=== PATIENT | female | born 1985 | race Caucasian/White ===

== ENCOUNTER 2023-08-12 17:37 | Inpatient (IN) | payer BC, SELFPAY ==
--- NOTE | ~2023-08-12 | CT_ITS ---
EXAMINATION: CT abdomen pelvis w con DATE: 08/12/2023 20:41 INDICATION: abdominal pain TECHNIQUE: Computed tomography (CT) of the abdomen and pelvis was performed with 100 mL Omnipaque-350 intravenous contrast. Automated exposure control and iterative reconstruction technique were employe d. The dose-length product was 1386.86 mGy-cm. COMPARISON: None. FINDINGS: Lower thorax: Dependent scar/atelectasis. Liver: 1.4 cm indeterminate density left liver lobe lesion. Subcentimeter right liver lobe lesion.. Biliary/Gallbladder: Gallbladder is normal. No bile duct dilation. Pancreas: No mass or duct dilation. Spleen: Normal. Adrenals:No mass. Kidneys: No suspicious mass, obstructing stone, or hydronephrosis. Subcentimeter left midpole hypoden sity, too small to characterize but most likely represents a cyst. GI tract: Mild distal esophageal and gastric wall edema No small or large bowel dilation. Dilated farzana endix with surrounding inflammatory change, no wall breakdown or abscess. Mesentery/Peritoneum: No ascites, mass, or free air. Retroperitoneum: No mass. Pelvis: Pelvic organs are within normal limits. IUD, in good position Soft Tissues: Soft tissues and body wall unremarkable. Bones: No acute osseous finding. IMPRESSION: Acute uncomplicated appendicitis. Mild esophagitis/gastritis. Indeterminate 1.4 cm left liver lobe lesion, recommend nonemergent outpatient MR the liver for furthe r characterization. Reviewed, dictated and finalized at location K. [employer] SOFTWARE DEVELOPER IMPRESSION: Acute uncomplicated appendicitis. Mild esophagitis/gastritis. Indeterminate 1.4 cm left liver lobe lesion, recommend nonemergent outpatient M R the liver for further characterization.
[2023-08-12 17:41] VITALS: BP 142/82; PULSE 138; RESP 18; TEMP 36.3; O2SAT 100
--- NOTE | 2023-08-12 18:03 | ED.ABDPAIN ---
HPI - Abdominal Pain General Chief Complaint: Abdominal Pain Stated Complaint: abd pain Time Seen by Provider: 08/12/23 17:54 History of Present Illness HPI narrative: Patient is the 38-year-old female with history of high cholesterol here with abdominal pain. She states that the abdominal pain began around 12 hours ago and woke her up in the middle the night. It was associated initially with a bout of diarrhea, nonbloody, liquid in nature. she has not had any bowel movement since that time and has not had any flatulence. She notes she has had about 4-5 episodes of vomit today which was nonbloody. Abdominal pain is located mid abdomen and right lower quadrant but seems to radiate throughout her entire abdomen. No prior abdominal surgeries. She has not had any p.o. intake today she has not taken anything at home for the pain today. No fever or chills at home. No cough or congestion. No prior cardiac history. She no longer has a menstrual cycle due to having an IUD in place. No vaginal discharge or bleeding. No urinary symptoms. Related Data Allergies Allergy/AdvReac Type Severity Reaction Status Date / Time Penicillins Allergy Unknown HIVES/SWELL Verified 08/12/23 18:05 ING Review of Systems Review of Systems: All systems reviewed & are unremarkable except as noted in HPI and below Exam Narrative: GENERAL: Well-appearing, well-nourished, and in no acute distress. HEAD: Normocephalic, atraumatic. EYES: PERRLA and EOMI. ENT: Nares clear. Mucous membranes moist. NECK: Supple. CHEST: Clear to auscultation. No respiratory distress. HEART: Tachycardic. Normal peripheral pulses. ABDOMEN: Soft, tenderness in the right lower quadrant with some guarding appreciated, no abdominal rigidity, no rebound appreciated. No CVA tenderness. EXTREMITIES: Normal range of motion. No edema. SKIN: Warm, dry, no rash. NEURO: No focal deficits. Alert and oriented x3. PSYCH: Normal mood and affect. Course Course Emergency Course: Chart review performed, patient is here with abdominal pain for 12 hours as well as vomiting. triage vitals show hypertension as well as tachycardia to 138. Afebrile. No prior visits in our system. Patient seen evaluated, appears to be pain, does have some guarding and tenderness in her right lower quadrant. Will do septic workup, IV fluids, pain medication, antiemetics, CT abdomen pelvis to evaluate for possible intra-abdominal pathology including but not limited to bowel obstruction, appendicitis, diverticulitis. Patient agreeable to plan. Additional pain medication provided to patient. Lab work reviewed, leukocytosis of 25.3. Hemoglobin 15.4, expect that some level of dehydration is contributed to hemoconcentration however do have concern for infectious process especially given clinical picture. Antibiotics for intra-abdominal coverage with ciprofloxacin and Flagyl ordered. Patient has allergy to penicillins. Electrolytes grossly normal, normal renal function. Mild elevation of total bilirubin at 2.3, mild elevation of ALT 48, LFTs otherwise within normal limits. negative. CRP mildly elevated at 1.4. UA has 4+ ketones, negative for UTI. COVID, influenza, RSV negative. Repeat vitals showed improving tachycardia from 138-93. Remains normotensive. Awaiting CT. CT images reviewed by myself, concerning appearance of right lower quadrant suspicion for acute pancreatitis, no obvious intraperitoneal free air or abscess appreciated. Spoke with Dr. Lopez who accepts the patient for admission. Keep NPO, continue antibiotics. Orders placed. Patient updated and all questions and concerns addressed. Vital Signs Vital signs: Vital Signs Temperature 97.3 F L 08/12/23 17:41 Pulse Rate 138 H 08/12/23 17:41 Respiratory Rate 18 08/12/23 17:41 Blood Pressure 142/82 H 08/12/23 17:41 Pulse Oximetry 100 08/12/23 17:41 Temperature 97.3 F L 08/12/23 17:41 Pulse
[2023-08-12] MEDS: ONDANSETRON INJ 4 MG/2 ML VIAL IV PUSH ×2 (18:25→21:31)
[2023-08-12] MEDS: MORPHINE SULFATE (*CRX) 4 MG/ML INJ IV PUSH ×2 (18:25→23:42)
[2023-08-12 18:31] LABS: Basophils Absolute Auto 0.1 K/mm3 (0.0-0.1); Basophils Percent Auto 0.2 % (0.2-1.2); Hematocrit 45.6 % (37.0-47.0); Hemoglobin 15.4 g/dL (12.0-15.0); Immature Granulocyte Absolute 0.11 K/mm3 (0.00-0.031); Immature Granulocyte Percent A 0.4 % (0-0.5); Lymphocytes Absolute Auto 1.42 K/mm3 (0.9-3.2); Lymphocytes Percent Auto 5.6 % (18.3-44.2); Mean Corpuscular HGB Conc 33.8 g/dl (32-36); Mean Corpuscular Hemoglobin 29.6 pg (26-34); Mean Corpuscular Volume 87.7 fl (80-100); Mean Platelet Volume 10.6 fl (7.4-10.4); Monocytes Percent Auto 3.9 % (2.6-8.5); Neutrophils Absolute Auto 22.7 K/mm3 (1.3-6.7); Neutrophils Percent Auto 89.9 % (45.5-73.1); Platelet Count Result 346 k/mm3 (150-375); Red Cell Distribution Width 12.8 % (11.5-14.5); White Blood Count 25.3 K/mm3 (4.5-10.0)
[2023-08-12 18:42] LABS: Lactic Acid Reflex 1.7 mmol/L (0.7-2.0)
[2023-08-12 18:43] LABS: Prothrombin Time 13.6 Seconds (11.1-14.7)
[2023-08-12 18:44] LABS: Alanine Aminotransferase 48 U/L (6-35); Albumin Level 4.8 g/dL (3.5-5.1); Alkaline Phosphatase 105 U/L (38-126); Anion Gap 10 mmol/L (8-16); Aspartate Amino Transferase 31 U/L (14-36); Bilirubin,Total 2.3 mg/dL (0.2-1.3); Blood Urea Nitrogen 9 mg/dL (7-17); Calcium 9.7 mg/dL (8.4-10.2); Carbon Dioxide 24 mmol/L (22-30); Chloride 105 mmol/L (98-107); Estimated CRCL calculation 118 ml/min; Estimated Glomerular Filt Rate > 60; Glucose 119 mg/dL (65-110); Lipase 174 U/L (23-300); Partial Thromboplastin Time 27.1 SECONDS (22.3-36.8); Sodium 139 mmol/L (137-145)
[2023-08-12 18:47] LABS: CRP 1.4 mg/dL (<1.0)
[2023-08-12 18:52] LABS: Large Platelets Present; Platelet Estimate Adequate (Adequate)
[2023-08-12 18:54] LABS: Burr Cells 1+ (NORMAL); Platelet Clumps Present; Poikilocytosis 1+ (NORMAL); Schistocytes None Seen (NORMAL); Tear Drop Cells 1+ (NORMAL)
[2023-08-12 19:10] LABS: Influenza A QL RT-PCR Negative (Negative); Influenza B QL RT-PCR Negative (Negative); RSV RNA, RT-PCR Negative (Negative); SARS-CoV-2 RNA PCR Negative (Negative)
[2023-08-12 19:15] LABS: SPREG INTERNAL CONTROL Positive; Serum Qual hCG Negative
[2023-08-12 19:17] LABS: Appearance Urine Cloudy (Clear); Bacteria Urine Rare /hpf; Bilirubin Urine Negative (Negative); Blood Urine Negative (Negative); Color Urine Dark Yellow (Yellow); Glucose Urine UA Negative (Negative); Ketones Urine 4+ mg/dL (Negative); Leukocyte Esterase Ur Trace LEU/UL (Negative); Need Manual Microscopic Reviewed; Nitrate Urine Negative (Negative); Protein Urine 1+ mg/dL (Negative); Specific Grav Ur 1.026 (1.001-1.035); Squamous Epithelial Cell Urine Moderate /hpf (Few); pH Urine 7.5 (5.0-9.0)
[2023-08-12] MEDS: metroNIDAZOLE 500 MG/ISO 100ML 500 MG/100 ML BAG 100 MG IVPB (19:18)
[2023-08-12] MEDS: HYDROmorphone HCL INJ (*CRX) 1 MG/ML SYR IV PUSH ×2 (19:18→21:21)
[2023-08-12 19:20] LABS: Add Urine Microscopic? YES
[2023-08-12 19:35] VITALS: BP 134/90; PULSE 93; RESP 15; O2SAT 100
[2023-08-12] MEDS: CIPROFLOXACIN 400 MG/D5W 200ML 200 ML 200 MG IVPB (20:17)
[2023-08-12 21:35] VITALS: BP 117/82; PULSE 91; RESP 14; O2SAT 96
[2023-08-12 21:36] VITALS: O2SAT 97
[2023-08-12 22:34] VITALS: BP 130/77; PULSE 99; RESP 16; TEMP 36.3; O2SAT 96; BMI 33.7
[2023-08-12 22:43] VITALS: BMI 33.7
--- NOTE | 2023-08-12 22:46 | ADMGEN ---
This patient, Vanessa Meyer, was admitted to 3 [facility] Surg Room 320-01. Patient/family oriented to hospital policies and general routines including ID bracelet, bed and alarms, visiting hours, pain management, procedures, bathroom and other care routines, personal items, smoking policy, room service/diet, and visiting hours. Information on how to activate the Rapid Response Team has been discussed. Patient/Family are encouraged to report perceived risks to care and to ask questions if they do not understand what they are told or what they should do.
[2023-08-12] MEDS: LACTATED RINGERS 1,000 ML 125 ML IV CONT (23:19)
[2023-08-12] MEDS: PROMETHAZINE HCL 25 MG/ML AMPUL 12.5 MG IV PUSH (23:43)
[2023-08-13] VITALS (13 sets, daily range): BP systolic 111–150; BP diastolic 58–95; PULSE 78–105; RESP 16–18; TEMP 36.2–37; O2SAT 93–100
[2023-08-13] MEDS: metroNIDAZOLE 500 MG/ISO 100ML 500 MG/100 ML BAG 100 MG IVPB ×3 (06:08→22:35)
[2023-08-13] MEDS: MORPHINE SULFATE (*CRX) 4 MG/ML INJ IV PUSH (06:12)
[2023-08-13] MEDS: PROMETHAZINE HCL 25 MG/ML AMPUL 12.5 MG IV PUSH ×3 (06:13→16:28)
[2023-08-13] MEDS: LACTATED RINGERS 1,000 ML 125 ML IV CONT (06:13)
[2023-08-13 06:55] LABS: Basophils Absolute Auto 0.1 K/mm3 (0.0-0.1); Basophils Percent Auto 0.3 % (0.2-1.2); Eosinophils Absolute Auto 0.1 K/mm3 (0-0.3); Eosinophils Percent Auto 0.4 % (0-4.4); Hematocrit 40.1 % (37.0-47.0); Hemoglobin 13.1 g/dL (12.0-15.0); Immature Granulocyte Absolute 0.11 K/mm3 (0.00-0.031); Immature Granulocyte Percent A 0.6 % (0-0.5); Lymphocytes Absolute Auto 3.76 K/mm3 (0.9-3.2); Lymphocytes Percent Auto 19.5 % (18.3-44.2); Mean Corpuscular HGB Conc 32.7 g/dl (32-36); Mean Corpuscular Hemoglobin 29.2 pg (26-34); Mean Corpuscular Volume 89.5 fl (80-100); Mean Platelet Volume 10.7 fl (7.4-10.4); Monocytes Percent Auto 5.3 % (2.6-8.5); Neutrophils Absolute Auto 14.3 K/mm3 (1.3-6.7); Neutrophils Percent Auto 73.9 % (45.5-73.1); Platelet Count Result 286 k/mm3 (150-375); Red Blood Count 4.48 M/mm3 (4.2-5.4); Red Cell Distribution Width 12.7 % (11.5-14.5); White Blood Count 19.3 K/mm3 (4.5-10.0)
[2023-08-13 07:04] LABS: Alanine Aminotransferase 32 U/L (6-35); Albumin Level 3.7 g/dL (3.5-5.1); Alkaline Phosphatase 69 U/L (38-126); Anion Gap 4 mmol/L (8-16); Aspartate Amino Transferase 19 U/L (14-36); Bilirubin,Total 2.3 mg/dL (0.2-1.3); Blood Urea Nitrogen 6 mg/dL (7-17); Carbon Dioxide 27 mmol/L (22-30); Chloride 106 mmol/L (98-107); Estimated CRCL calculation 122 ml/min; Estimated Glomerular Filt Rate > 60; Glucose 88 mg/dL (65-110); Potassium 3.8 mmol/L (3.4-5.0); Sodium 137 mmol/L (137-145)
[2023-08-13] MEDS: HYDROmorphone HCL INJ (*CRX) 1 MG/ML SYR IV PUSH ×4 (08:49→21:08)
[2023-08-13] MEDS: CIPROFLOXACIN 400 MG/D5W 200ML 200 ML 200 MG IVPB ×2 (08:49→21:09)
--- NOTE | 2023-08-13 09:44 | PM.IMHP ---
H&P: HPI History of Present Illness Date/Time: 08/13/23 09:44 Chief Complaint: Abdominal pain, vomiting Narrative: This is a 38-year-old woman with a history of hyperlipidemia, GERD, and anxiety, who presented to the ER last night with complaints of abdominal pain. She woke up yesterday morning around 6:00 a.m. with diarrhea. Shortly after, she developed generalized abdominal cramping. She reports associated chills, nausea, and vomiting. Due to her persistent pain, she came into the ER for evaluation. Workup showed a white blood cell count of 25,300. CT scan of the abdomen and pelvis showed acute uncomplicated appendicitis, no evidence of perforation or abscess, mild esophagitis/gastritis, indeterminate 1.4 cm left liver lobe lesion. She has a penicillin allergy and was started on IV ciprofloxacin and metronidazole. She had relief in her abdominal pain following the IV Dilaudid. She reports her abdominal pain is mostly across her lower abdomen now and is more localized in the right lower quadrant. No previous abdominal surgeries. Review of Systems Review of Systems: All systems reviewed & are unremarkable except as noted in HPI and below PMFSH Past Medical History Medical History Anxiety GERD (gastroesophageal reflux disease) Hyperlipidemia Surgical History Surgical History No pertinent past surgical history Family History Family History Mother Hyperlipidemia Heart disease Acute myocardial infarction Sibling Hyperlipidemia Social History Social History Smoking status: Current every day smoker Tobacco type: e-cigarettes/vaping Second hand tobacco smoke exposure: No Alcohol intake: current Drinks per week: 2 Substance use: current Substance use type: marijuana Other substance usage details: edibles Lack of Transportation: No Lack of Food: Never True Current Housing: I Have Housing Concerned About Future Housing: No Difficulty Paying Gas/Electric Bills: No Difficulty Paying for Meds: No Currently Unemployed: No Education: Bachelor's Degree Difficulty w/ Childcare or Family Care: No Spiritual care concerns: No Meds Home Medications and Allergies Home Medications Medication Instructions Recorded Confirmed Type alprazolam 0.25 mg tablet 0.25 mg PO BID PRN Anxiety 08/12/23 08/12/23 History atorvastatin 40 mg tablet 40 mg PO HS 08/12/23 08/12/23 History dextroamphetamine-amphetamine ER 20 mg PO DAILY 08/12/23 08/12/23 History 20 mg 24hr capsule,extend release pantoprazole 40 mg tablet,delayed 40 mg PO DAILY 08/12/23 08/12/23 History release semaglutide (weight loss) 2.4 2.4 mg subcut WEEKLY 08/12/23 08/12/23 History mg/0.75 mL subcutaneous pen injector (Juan) Allergies Allergy/AdvReac Type Severity Reaction Status Date / Time Penicillins Allergy Unknown HIVES/SWELL Verified 08/12/23 18:05 ING Vital Signs Vital Signs - 24 hr 08/12/23 17:41 08/12/23 19:35 08/12/23 21:36 Temperature 97.3 F L Pulse Rate 138 H 93 Respiratory Rate 18 15 Blood Pressure 142/82 H 134/90 Pulse Oximetry 100 100 97 Oxygen Delivery Nasal Cannula Oxygen Flow Rate 2 08/12/23 21:35 08/12/23 22:34 08/13/23 05:22 Temperature 97.4 F L 98.6 F Pulse Rate 91 99 85 Respiratory Rate 14 16 16 Blood Pressure 117/82 130/77 111/70 Pulse Oximetry 96 96 99 Oxygen Delivery Oxygen Flow Rate 08/13/23 08:00 Temperature Pulse Rate Respiratory Rate Blood Pressure Pulse Oximetry 95 Oxygen Delivery Oxygen Flow Rate Exam Const: General: comfortable and no acute distress Nutritional Appearance: overweight Orientation/consciousness: patient oriented x3 HENMT: Head: normocephalic and atraumatic Ears: hearing grossly
[2023-08-13] MEDS: PANTOPRAZOLE 40 MG TABLET PO (09:51)
[2023-08-13] MEDS: ALPRAZolam (*CRX) 0.25 MG TABLET PO (09:51)
--- NOTE | 2023-08-13 13:16 | WPDHPUPDATE1 ---
History and Physical Update Update Date/Time: 08/13/23 13:16 History and Physical has been reviewed, including an updated exam of the patient. There are NO changes in the patient's condition. Risks, benefits, and alternatives have been discussed and questions answered. Patient agrees to proceed with procedure.
[2023-08-13] MEDS: LACTATED RINGERS 1,000 ML 30 ML IV CONT ×2 (14:20→16:18)
--- NOTE | 2023-08-13 14:37 | WPDANESEPPF ---
Anes - Initial Pre Proc Eval Procedure: Operation Date: 08/13/23 15:30 Proposed Procedures p Laparoscopic Appendectomy, Possible Open - Joaquim Lopez DO Date/Time: 08/13/23 14:37 Surgeon: Joaquim Lopez DO Pre Op Diagnosis: Acute Appendicits Patient Data Age: 38 Gender: F Height: 1.78 m Weight: 106.9 kg Last Vital Signs Temp 36.6 C 08/13/23 14:31 Pulse 83 08/13/23 14:31 Resp 16 08/13/23 14:31 BP 115/65 08/13/23 14:31 Pulse Ox 100 08/13/23 14:31 O2 Del Method Room Air 08/13/23 14:31 O2 Flow Rate 2 08/12/23 21:36 Allergies Allergy/AdvReac Type Severity Reaction Status Date / Time Penicillins Allergy Unknown HIVES/SWELL Verified 08/12/23 18:05 ING Home Medications Medication Instructions Recorded Confirmed Type alprazolam 0.25 mg tablet 0.25 mg PO BID PRN Anxiety 08/12/23 08/12/23 History atorvastatin 40 mg tablet 40 mg PO HS 08/12/23 08/12/23 History dextroamphetamine-amphetamine ER 20 mg PO DAILY 08/12/23 08/12/23 History 20 mg 24hr capsule,extend release pantoprazole 40 mg tablet,delayed 40 mg PO DAILY 08/12/23 08/12/23 History release semaglutide (weight loss) 2.4 2.4 mg subcut WEEKLY 08/12/23 08/12/23 History mg/0.75 mL subcutaneous pen injector (Wegovmarcin) Laboratory Tests 08/12/23 08/12/23 08/13/23 18:19 18:57 06:19 WBC 25.3 H K/mm3 19.3 H K/mm3 (4.5-10.0) (4.5-10.0) RBC 5.20 M/mm3 4.48 M/mm3 (4.2-5.4) (4.2-5.4) Hgb 15.4 H g/dL 13.1 g/dL (12.0-15.0) (12.0-15.0) Hct 45.6 % 40.1 % (37.0-47.0) (37.0-47.0) MCV 87.7 fl 89.5 fl (80-100) (80-100) MCH 29.6 pg 29.2 pg (26-34) (26-34) MCHC 33.8 g/dl 32.7 g/dl (32-36) (32-36) RDW 12.8 % 12.7 % (11.5-14.5) (11.5-14.5) Plt Count 346 k/mm3 286 k/mm3 (150-375) (150-375) MPV 10.6 H fl 10.7 H fl (7.4-10.4) (7.4-10.4) Immature Gran % (Auto) 0.4 % 0.6 H % (0-0.5) (0-0.5) Neut % (Auto) 89.9 H % 73.9 H % (45.5-73.1) (45.5-73.1) Lymph % (Auto) 5.6 L % 19.5 % (18.3-44.2) (18.3-44.2) Mccracken % (Auto) 3.9 % 5.3 % (2.6-8.5) (2.6-8.5) Eos % (Auto) 0.0 % 0.4 % (0-4.4) (0-4.4) Baso % (Auto) 0.2 % 0.3 % (0.2-1.2) (0.2-1.2) Lymph # (Auto) 1.42 K/mm3 3.76 H K/mm3 (0.9-3.2) (0.9-3.2) Mccracken # (Auto) 1.0 H K/mm3 1.0 H K/mm3 (0.1-0.6) (0.1-0.6) Eos # (Auto) 0.0 K/mm3 0.1 K/mm3 (0-0.3) (0-0.3) Baso # (Auto) 0.1 K/mm3 0.1 K/mm3 (0.0-0.1) (0.0-0.1) Abs Immat Gran (auto) 0.11 H K/mm3 0.11 H K/mm3 (0.00-0.031) (0.00-0.031) Absolute Neuts (auto) 22.7 H K/mm3 14.3 H K/mm3 (1.3-6.7) (1.3-6.7) Absolute Nucleated RBC 0.0 K/mm3 0.0 K/mm3 (0.0-0.012) (0.0-0.012) Nucleated RBC % 0.0 % 0.0 % (0.0-0.2) (0.0-0.2) Platelet Estimate Adequate (Adequate) Clumped Platelets Present Large Platelets Present Poikilocytosis 1+ (NORMAL) Tear Drop Cells 1+ (NORMAL) Allie Cells 1+ (NORMAL) Schistocytes None seen (NORMAL) PT 13.6 Seconds (11.1-14.7) INR 1.0 APTT 27.1 SECONDS (22.3-36.8) Sodium 139 mmol/L 137 mmol/L (137-145) (137-145) Potassium 4.0 mmol/L 3.8 mmol/L (3.4-5.0) (3.4-5.0) Chloride 105 mmol/L 106 mmol/L (98-107) (98-107) Carbon Dioxide 24 mmol/L 27 mmol/L (22-30) (22-30) Anion Gap 10 mmol/L 4 L mmol/L (8-16) (8-16) BUN 9 mg/dL 6 L mg/dL (7-17) (7-17) Creatinine 0.70 mg/dL 0.70 mg/dL (0.7-1.0) (0.7-1.0) Estim Creat Clear Calc 118 ml/min 122 ml/min Estimated GFR > 60 > 60 (59 - ) (59 - ) Glucose 119 H mg/dL 88 mg/dL (65-110) (65-110) Lactic Acid 1.7 mmol/L (0.7-2.0) Calcium 9.7 mg/dL 9.0 mg/dL (8.4-10.2) (8.4-
[2023-08-13] MEDS: BUPIVACAINE/EPINEPHRINE 0.5% 50 ML VIAL 30 ML INFILTRATE (16:00)
--- NOTE | 2023-08-13 16:22 | W.PM.PROC2 ---
Procedure Note - Detailed Date of Procedure 08/13/23 Pre-op Diagnosis Acute Appendicits Post-op Diagnosis Same (Acute appendicitis with localized peritonitis without perforation or abscess) Procedure Performed Laparoscopic appendectomy Surgeon Joaquim Lopez DO Anesthesia General and Local (0.5% bupivicaine with epinephrine) Indications This is a 38-year-old woman who presented to the emergency department last night with right lower quadrant pain with nausea and vomiting. Her pain had progressed over the previous 24 hours. She was noted to have an elevated white blood count at 25,[address] showed evidence of acute appendicitis. She was started on broad-spectrum IV antibiotics and admitted for further treatment. Discussions were made with the patient about treatment options and decision was made to proceed with laparoscopic appendectomy, possible open. Findings Laparoscopic appendectomy was performed. The appendix appeared indurated and inflamed, but there was no evidence of perforation or abscess. The base of the appendix appeared healthy and viable. The appendix was removed and sent to the lab for pathology. No other intra-abdominal abnormalities were noted. Description of Procedure Procedure as well as risks, benefits, and alternatives were explained to the patient. The patient agreed to proceed. Written consent was obtained and placed in chart prior to procedure. The patient was brought back to surgical suite. She was placed supine on operating table. Time-out was done to confirm the patient and procedure. The patient was then intubated by the Anesthesia Department. Her abdomen was prepped and draped in sterile fashion using chlorhexidine prep. A 5 mm incision was made just to the left of the patient's umbilicus and a 5 mm Optiview trocar was advanced through the abdominal layers under direct visualization. Once inside the peritoneal cavity, carbon dioxide insufflation was used to create a pneumoperitoneum. The camera was inserted and the abdomen was inspected. No immediate abnormalities were identified. The patient was then placed in slight Trendelenburg position and rotated to the left. A 5 mm incision was made in the suprapubic region in midline and a 5 mm trocar was inserted under direct visualization. A 12 mm incision was made in the left lower quadrant and a 12 mm trocar was inserted under direct visualization. The right lower quadrant was carefully inspected. The cecum was identified and then this was traced back to the appendix. The appendix was identified and grasped at the mesoappendix and lifted anteriorly. Careful blunt dissection was carried out at the base of the appendix through the mesoappendix using a [place] grasper. An Endo-MAC 45 mm blue load stapler was then advanced across the base of the appendix and clamped and fired. A white reload was then clamped across the mesoappendix and fired. This freed up our appendix completely. It was then placed in an EndoCatch bag and removed through the left lower quadrant port. The staple lines were then inspected. Hemostasis appeared adequate and the staple lines appeared secure. The area was then irrigated with sterile saline. The pelvis was then carefully inspected and irrigated with sterile saline as well and the remainder of the abdomen was carefully inspected. The patient was then flattened out in bed. One final inspection was made around the abdominal cavity and no other abnormalities were seen. The left lower quadrant port was removed and a Carlo-Natividad cone was used to approximate the fascia with an 0 Vicryl simple interrupted suture. The remaining ports were then removed under direct visualization. The camera was removed and the pneumoperitoneum was released. 0.5% bupivacaine with epinephrine was infiltrated locally around each of the incisions. The skin of the incisions was then approximated using 4-0 Monocryl subcuticular suture and Exofin glue was applied o
[2023-08-13] MEDS: fentaNYL CITRATE INJ (*CRX) 100 MCG/2 ML VIAL 25 MCG IV PUSH ×6 (16:46→17:12)
[2023-08-13] MEDS: HYDROcodone/acetaminophen (*CRX) 10-325 MG TABLET 1 TAB PO (22:36)
[2023-08-14] VITALS: BP 100/60; PULSE 86; RESP 16; TEMP 36.6; O2SAT 96
[2023-08-14 04:00] VITALS: BP 104/53; PULSE 80; RESP 14; TEMP 36.1; O2SAT 96
[2023-08-14] MEDS: HYDROmorphone HCL INJ (*CRX) 1 MG/ML SYR 0.5 MG IV PUSH ×2 (06:20→12:11)
[2023-08-14] MEDS: metroNIDAZOLE 500 MG/ISO 100ML 500 MG/100 ML BAG 100 MG IVPB ×2 (06:21→14:28)
[2023-08-14 07:13] VITALS: BP 113/67; PULSE 79; RESP 16; TEMP 36.7; O2SAT 97
[2023-08-14 07:39] LABS: Hematocrit 41.8 % (37.0-47.0); Hemoglobin 13.7 g/dL (12.0-15.0); Mean Corpuscular HGB Conc 32.8 g/dl (32-36); Mean Corpuscular Hemoglobin 29.7 pg (26-34); Mean Corpuscular Volume 90.5 fl (80-100); Mean Platelet Volume 10.7 fl (7.4-10.4); Platelet Count Result 320 k/mm3 (150-375); Red Blood Count 4.62 M/mm3 (4.2-5.4)
[2023-08-14 07:58] LABS: Anion Gap 12 mmol/L (8-16); Blood Urea Nitrogen 4 mg/dL (7-17); Calcium 9.5 mg/dL (8.4-10.2); Carbon Dioxide 25 mmol/L (22-30); Chloride 103 mmol/L (98-107); Estimated CRCL calculation 165 ml/min; Estimated Glomerular Filt Rate > 60; Glucose 100 mg/dL (65-110); Potassium 3.8 mmol/L (3.4-5.0); Sodium 140 mmol/L (137-145)
[2023-08-14] MEDS: CIPROFLOXACIN 400 MG/D5W 200ML 200 ML 200 MG IVPB (08:21)
[2023-08-14] MEDS: PANTOPRAZOLE 40 MG TABLET PO (08:21)
[2023-08-14] MEDS: HYDROcodone/acetaminophen (*CRX) 10-325 MG TABLET 1 TAB PO (08:21)
[2023-08-14] MEDS: PROMETHAZINE HCL 25 MG/ML AMPUL 12.5 MG IV PUSH (08:29)
[2023-08-14 11:13] VITALS: BP 125/75; PULSE 79; RESP 16; TEMP 36.8; O2SAT 99
--- NOTE | 2023-08-14 11:59 | PM.DS ---
DS: Admitting Diagnosis Discharge Date 08/14/2023 Admitting Diagnosis Acute appendicitis DS: Discharge Diagnosis Discharge Diagnosis (1) Acute appendicitis: Qualifiers: Acute appendicitis type: with localized peritonitis Appendicitis gangrene presence: without gangrene Appendicitis perforation presence: without perforation Appendicitis abscess presence: without abscess Qualified Code(s): K35.30 - Acute appendicitis with localized peritonitis, without perforation or gangrene Code(s): K35.80 - Unspecified acute appendicitis Status: Acute DS: Summary Hospital Course Reason for hospitalization: Acute appendicitis Hospital Course: This is a 38-year-old woman who presented to the emergency department on 08/12/2023 with right lower quadrant pain that started the night before. Her pain had progressed and she was also experiencing nausea and vomiting. She was noted to have an elevated white blood count and CT showed evidence of acute appendicitis in the emergency department. She was started on broad-spectrum IV antibiotics and admitted to the hospital for further treatment. She underwent laparoscopic appendectomy on 08/13/2023. Surgery was uncomplicated and she was returned to the surgical floor postoperatively. Her diet and activity were advanced as tolerated. On postop day 1 she was tolerating her low-fat diet and pain was well controlled. She remained hemodynamically stable. She was discharged on 08/14/2023. Status at Discharge Functional status at discharge: independent ambulation Overall status at discharge: patient is progressing back to baseline Time Spent with Patient Time attestation: Total time spent providing and/or coordinating discharge services: Time spent: Less than 30 minutes Exam Const: General: comfortable, no acute distress and alert Resp: Effort & Inspection: normal respiratory effort Auscultation: clear to auscultation bilaterally Cardio: Rate: regular rate Rhythm: regular rhythm GI: Inspection: incision (Intact with glue) GI Palp: Yes Soft to palpation and Yes Tenderness to palpation present (GI) (Left lower quadrant incisional) Percussion: Yes normal to percussion Auscultation: normal bowel sounds DS: Data Data Completed and Pending Pending studies at discharge: Pending at discharge 08/13/23 16:03 Surgical [PTH] Routine Labs on day of discharge: Labs from last 24 hours 08/14/23 07:08 WBC 14.0 H RBC 4.62 Hgb 13.7 Hct 41.8 MCV 90.5 MCH 29.7 MCHC 32.8 RDW 13.0 Plt Count 320 MPV 10.7 H Sodium 140 Potassium 3.8 Chloride 103 Carbon Dioxide 25 Anion Gap 12 BUN 4 L Creatinine 0.50 L Estim Creat Clear Calc 165 Estimated GFR > 60 Glucose 100 Calcium 9.5 Preliminary micro results at discharge 08/12/23 18:19 Blood Culture - Preliminary Blood 08/12/23 18:19 Blood Culture - Preliminary Blood Discharge Plan Discharge Attending physician on discharge: Joaquim Lowry Discharging Clinician: Joaquim Lowry Patient Disposition: Home, Self-Care Activity: other - see discharge instructions Diet: other - see discharge instructions Wound Care Instructions: other - see discharge instructions Discharge Instructions: DISCHARGE INSTRUCTION SHEET FOR HERNIA, GALLBLADDER AND APPENDIX SURGERIES DR. LOWRY PATIENT TO TAKE HOME 1. May shower, no soaking in bath x 2weeks. 2. Call office for: Wound increasingly painful or bleeding Vomiting Fever of greater than 101 degrees 3. If no bowel movement for three days, take 1 oz. (30 ml) Milk of Magnesia or MiraLax 17g 1 to 2 times daily. 4. No heavy lifting > 10-15 pounds x weeks for hernia repairs and 2 weeks for laparoscopic cholecystectomy or appendectomy. 5. No driving for 3 days or while taking narcotic pain medications. 6. Ice to surgical site for 48 hours (30 min on, then 30 min off).
[2023-08-14] MEDS: HYDROcodone/acetaminophen (*CRX) 5-325 MG TABLET 1 TAB PO (14:32)
--- NOTE | 2023-08-14 14:54 | WPDANESPN ---
Anes - Prog Note Post-Op Date/Time: 08/14/23 14:54 Cardiovascular status: normal Respiratory status: normal Airway patency: baseline Mental status: baseline Post-Op hydration status: normal Vital Signs: Last Vital Signs Temp 98.3 F 08/14/23 11:13 Pulse 79 08/14/23 11:13 Resp 16 08/14/23 11:13 BP 125/75 08/14/23 11:13 Pulse Ox 99 08/14/23 11:13 O2 Del Method Room Air 08/13/23 17:24 O2 Flow Rate 10 08/13/23 16:18 Pain Score (VAS): 0/10 I/O: Intake & Output 08/13/23 08/14/23 08/14/23 23:59 07:59 15:59 Intake Total 860 600 640 Output Total 300 Balance 560 600 640 Laboratory Tests 08/14/23 07:08 08/14/23 07:08 08/14/23 07:08 WBC 14.0 H RBC 4.62 Hgb 13.7 Hct 41.8 MCV 90.5 MCH 29.7 MCHC 32.8 RDW 13.0 Plt Count 320 MPV 10.7 H Sodium 140 Potassium 3.8 Chloride 103 Carbon Dioxide 25 Anion Gap 12 BUN 4 L Creatinine 0.50 L Estim Creat Clear Calc 165 Estimated GFR > 60 Glucose 100 Calcium 9.5 Microbiology 08/12/23 18:57 Urine Clean Catch Urine Culture - Final 08/12/23 18:19 Blood Blood Culture - Preliminary 08/12/23 18:19 Blood Blood Culture - Preliminary Post-procedural complaints: none Patient Feedback: Patient satisfied with anesthetic care.
[2023-08-14 15:13] VITALS: BP 110/75; PULSE 93; RESP 16; TEMP 36.7; O2SAT 100
== END 2023-08-14 16:44 | disposition home or self-care (01) | DRG 399 ==
LOC: ANHED 19:01 → ANH3MEDSUR 21:45
PROVIDERS: Admitting Provider Surgery; Emergency Provider Student in an Organized Health Care Education/Training Program; PCP Physician Assistant; Visit Provider Surgery
PROC: 0DTJ4ZZ Resection of Appendix, Percutaneous Endoscopic Approach (ICD-10-PCS; CPT 44970; principal; 2023-08-13 15:30)
DX: K35.30 Acute appendicitis with localized peritonitis, without perforation or gangrene (principal); E78.00 Pure hypercholesterolemia, unspecified; K21.9 Gastro-esophageal reflux disease without esophagitis; F41.9 Anxiety disorder, unspecified; Z20.822 Contact with and (suspected) exposure to COVID-19
CPT/HCPCS: 36415; 74177; 80048; 80053; 81001; 83605; 83690; 84703; 85025; 85027; 85610; 85730; 86140; 86850; 86900; 86901; 87040; 87086; 87088; 87637; 88304; 96365; 96367; 96375; 99285; A9270; J0330; J0744; J1100; J1170; J1200; J1836; J2250; J2270; J2405; J2550; J2704; J3010; J7120; Q9967

== ENCOUNTER 2023-11-29 08:22 | Outpatient (CLI) | payer BC, SELFPAY ==
--- NOTE | ~2023-11-29 | MR_ITS ---
EXAMINATION: MR abdomen wo/w con DATE: 11/29/2023 09:34 INDICATION: Lesion of liver. TECHNIQUE: Magnetic resonance imaging (MRI) of the abdomen was performed without and with 19 mL Multi Shady intravenous contrast. COMPARISON: CT abdomen and pelvis 08/12/2023 FINDINGS: There is a 15 mm hyperenhancing mass in left hepatic lobe. There is an 8 mm hyperenhancing mass in ri ght hepatic lobe. There is an 11 mm cyst in right hepatic lobe. The gallbladder, spleen, pancreas, ad renal glands, and kidneys are normal. There are no dilated loops of bowel. There are no pathologicall y enlarged lymph nodes. There is no free intraperitoneal fluid. IMPRESSION: 1. Two hyperenhancing liver masses measuring up to 15 mm. In the absence of known malignancy or chron ic liver disease, these findings are likely hemangiomas or focal nodular hyperplasia. Reviewed, dictated and finalized at location A. IMPRESSION: 1. Two hyperenhancing liver masses measuring up to 15 mm. In the absence of kno wn malignancy or chronic liver disease, these findings are likely hemangiomas o r focal nodular hyperplasia.
== END 2023-11-29 08:23 ==
PROVIDERS: PCP Physician Assistant; Visit Provider Physician Assistant
DX: K76.9 Liver disease, unspecified (principal)
CPT/HCPCS: 74183; A9577

== ENCOUNTER 2024-08-12 09:21 | Outpatient (CLI) | payer BC, SELFPAY ==
--- NOTE | ~2024-08-12 | US_ITS ---
RIGHT UPPER QUADRANT ABDOMINAL ULTRASOUND (Doppler ultrasound interrogation techniques used as needed for this exam.) Ordering provider: Jo Ann Aj, KRYSTAL History: . RUQ pain . Comparison: None. FINDINGS: PANCREAS: Obscured. PORTAL VEIN: Hepatopedal flow demonstrated. LIVER: Normal size and echotexture. No focal hepatic lesions or perihepatic fluid collections are pipo ntified. BILIARY DUCTS: No intra or extrahepatic biliary dilation. Common bile duct measures 4 mm in diameter which is normal for patient's age. GALLBLADDER: Normal. No stones, sludge, gallbladder wall thickening or pericholecystic fluid. Negati ve sonographic Carney's sign. The wall thickness is 2 mm. FREE FLUID: None visualized within the upper abdomen. IMPRESSION: normal right upper quadrant ultrasound. Reviewed, dictated and finalized at location A. [facility] [employer]
== END 2024-08-12 09:22 | disposition home or self-care (01) ==
LOC: GOSHIMG 09:24
PROVIDERS: PCP Physician Assistant; Visit Provider Physician Assistant
DX: R10.11 Right upper quadrant pain (principal)
CPT/HCPCS: 76705

== ENCOUNTER 2024-08-20 07:50 | Outpatient (CLI) | payer BC, SELFPAY ==
--- NOTE | ~2024-08-20 | NM_ITS ---
EXAMINATION: NM hepatobiliary w pharm DATE: 08/20/2024 12:45 INDICATION: Right upper quadrant abdominal pain COMPARISON: Ultrasound dated 08/12/2024 TECHNIQUE: 5 mCi Tc-99m mebrofenin (Choletec) was administered intravenously. Scintigraphic images o f the abdomen were obtained for one hour. 3 mcg sincalide (Kinevac) was administered by slow intraven ous infusion, and imaging was continued for 30 minutes. Gallbladder ejection fraction was calculated by the technologist. FINDINGS: There is normal clearance of radiotracer from the blood pool. There is homogeneous tracer uptake by t he liver. Activity progresses to the gallbladder and bowel. The gallbladder ejection fraction (GBEF) is 73% (normal 10-90%, but most patient with gallbladder dysfunction have GBEF < 35% which does over lap with the normal range). IMPRESSION: 1. Normal hepatobiliary scan. Reviewed, dictated and finalized at location A. [facility]
== END 2024-08-20 07:51 | disposition home or self-care (01) ==
PROVIDERS: PCP Physician Assistant; Visit Provider Physician Assistant
DX: R10.11 Right upper quadrant pain (principal)
CPT/HCPCS: 78227; A9537; J2805